=== PATIENT | male | born 1990 | race Caucasian/White ===

== ENCOUNTER 2020-07-23 03:20 | Emergency (ER) | payer MEDICAID ==
[~2020-07-23] VITALS: Ht 182.9 cm; Wt 70.5 kg
[2020-07-23 03:50] VITALS: BP 139/79
== END 2020-07-23 03:52 ==
LOC: ER 03:21
DX: H10.213 Acute toxic conjunctivitis, bilateral (principal); Z88.0 Allergy status to penicillin; Z02.89 Encounter for other administrative examinations
CPT/HCPCS: 99283

== ENCOUNTER 2021-03-17 13:13 | Emergency (ER) | payer MEDICAID ==
[~2021-03-17] VITALS: Ht 182.9 cm; Wt 72.7 kg
[2021-03-17 13:42] VITALS: BP 139/79
== END 2021-03-17 22:40 | disposition left against medical advice (07) ==
LOC: ER 13:15
DX: T76.21XA Adult sexual abuse, suspected, initial encounter (principal); Z53.21 Procedure and treatment not carried out due to patient leaving prior to being seen by health care provider; Y09 Assault by unspecified means

== ENCOUNTER 2021-03-26 13:12 | Emergency (ER) | payer MEDICAID | END 2021-03-26 14:15 | disposition left against medical advice (07) | LOC: ER 13:13 | DX: S09.90XA Unspecified injury of head, initial encounter (principal); Z53.21 Procedure and treatment not carried out due to patient leaving prior to being seen by health care provider; X58.XXXA Exposure to other specified factors, initial encounter; Y93.89 Activity, other specified; Y92.89 Other specified places as the place of occurrence of the external cause; Y99.8 Other external cause status ==

== ENCOUNTER 2022-05-26 14:07 | Emergency (ER) | payer MEDICAID ==
[~2022-05-26] VITALS: Ht 182.9 cm; Wt 71.8 kg
[2022-05-26 14:39] VITALS: BP 133/97
== END 2022-05-26 15:21 | disposition home or self-care (01) ==
LOC: ER 14:07
DX: S40.812A Abrasion of left upper arm, initial encounter (principal); S06.0X0A Concussion without loss of consciousness, initial encounter; Z88.0 Allergy status to penicillin; W19.XXXA Unspecified fall, initial encounter; Y93.89 Activity, other specified; Y92.89 Other specified places as the place of occurrence of the external cause; Y99.8 Other external cause status
CPT/HCPCS: 99281

== ENCOUNTER 2023-11-19 11:45 | Emergency (ER) | payer MEDICAID, OTHER ==
[~2023-11-19] VITALS: Ht 182.9 cm; Wt 76.2 kg
[2023-11-19 11:57] VITALS: BP 152/105; PULSE 88; RESP 18; O2SAT 98
[2023-11-19] MEDS ORDERED: CLIN-97 PO (12:26)
[2023-11-19 12:46] VITALS: TEMP 98.2
== END 2023-11-19 12:48 | disposition home or self-care (01) ==
LOC: ER 11:46
DX: K08.89 Other specified disorders of teeth and supporting structures (principal); Z79.899 Other long term (current) drug therapy
CPT/HCPCS: 99283